=== PATIENT | male | born 1965 | race Caucasian/White ===

== ENCOUNTER 2016-10-19 09:33 | Inpatient (IN) | payer OTHER ==
[~2016-10-19] VITALS: Ht 180.3 cm; Wt 152.2 kg
--- NOTE | ~2016-10-19 | CT71 ---
[facility] Service of [facility] RADIOLOGY TEXT RESULTS PATIENT: YASMIN CABRAL SR. LOCATION: [facility] PC 306- : [birth year] UNIT #: [id number] AGE: [address]: Lisseth Bates MD SEX: M ORDER DR: [id number] [facility] [address] [facility]. [place], [place] [address] [id number] E MR#: [id number] Acc #: [id number] NAME: YASMIN CABRAL SR. : 1965 SEX: M STUDY DATE/TIME: 10/19/2016 11:01 UNIT: [facility] ROOM: STUDY DESCRIPTION: CT Head Wo Contrast Attending Physician: Dalton Dean M.D. Ordering Physician: Dalton Dean M.D. Primary Care Physician: Manjit Mitchell M.D. MEDICAL IMAGING REPORT This report is preliminary unless electronic signature is present EXAM CT head without contrast DATE 10/19/2016 HISTORY Dizziness, unsteady gait and nausea since this morning. Hypertension. COMPARISON Noncontrast CT head 09/22/2010. TECHNIQUE This CT exam was performed with one or more of the following radiation dose reduction techniques: automatic control, adjustment of mA and/or kV according to patient size, and iterative reconstruction. FINDINGS No acute intracranial hemorrhage, mass lesion, mass effect, or midline shift or evidence of acute or evolving infarct. Huitron matter - white matter junction distinction appears preserved. Ventricular configuration is within normal limits. Mastoid air cells are clear. Mild left ethmoid sinus mucosal thickening. Calvaria is within normal limits. IMPRESSION 1. No acute intracranial findings. 2. Mild left ethmoid sinus disease. Dictated by... Yuko Alicea M.D. THIS IS AN ELECTRONICALLY VERIFIED REPORT Yuko Alicea M.D. at 10/20/2016 11:57 AM [facility] A Service [facility] RADIOLOGY TEXT RESULTS PATIENT: YASMIN CABRAL SR. LOCATION: C3A 306- : 65 UNIT #: [id number] AGE: [address]: Lisseth Bates MD SEX: M ORDER DR: BENEDICTO/danilo TD: 10/19/2016 15:44 JOB #: [id number] MEDICAL IMAGING REPORT Page 1 of 1 COPY
--- NOTE | ~2016-10-19 | TH ---
Unit #: [id number] #: [id number] Patient: YASMIN CABRAL SR. [id number] [address] [address] [id number] I MR#: [id number] NAME: YASMIN CABRAL SR. : 1965 SEX: M STUDY DATE/TIME: 10/21/2016 UNIT: C3A PCU ROOM: 306 STUDY DESCRIPTION: Cardiolite imaging Attending Physician: Lisseth Bates M.D. Primary Care Physician: Manjit Mitchell M.D. CARDIOLOGY REPORT EXAM Cardiolite imaging. PROCEDURE Using technetium 99m labeled Cardiolite, stress images were obtained. Multiple SPECT images were obtained in various views, including horizontal and vertical long axis and short axis views. Images were obtained by gated SPECT imaging. The patient was administered 30.0 mCi of Cardiolite after Lexiscan infusion was completed. The stress images show normal perfusion. The left ventricular ejection fraction is calculated to be 66%. The left ventricular cavity is mildly dilated. CONCLUSION 1. Normal perfusion noted on the stress images. 2. The left ventricular ejection fraction is calculated to be 66%. 3. The left ventricular cavity is mildly dilated. 4. Normal Lexiscan stress test with mildly dilated left ventricle. Dictated by... La Isabel TD: 10/21/2016 11:11 JOB #: [id number] CARDIOLOGY REPORT Page 1 of 1 X Armida Gilbert MD <ELECTRONICALLY SIGNED> 12/16/16 1524 CARDIOLOGY REPORT
--- NOTE | ~2016-10-19 | CR72 ---
[facility] A Service of [facility] RADIOLOGY TEXT RESULTS PATIENT: YASMIN CABRAL SR. LOCATION: [facility] 306-01 : [birth year] UNIT #: [id number] AGE: [address]: Lisseth Bates MD SEX: M ORDER DR: [id number] [facility] [address] [facility]. [place], [place] [address] [id number] E MR#: [id number] Acc #: [id number] NAME: YASMIN CABRAL : 1965 SEX: M STUDY DATE/TIME: 10/19/2016 10:31 UNIT: [facility] ROOM: STUDY DESCRIPTION: CR Chest Single View Portable Attending Physician: Dalton Dean M.D. Ordering Physician: Dalton Dean M.D. Primary Care Physician: Manjit Mitchell M.D. MEDICAL IMAGING REPORT This report is preliminary unless electronic signature is present EXAM Chest portable 10/19/2016 1031 hours HISTORY 50-year-old man complaining of dizziness with nausea today. COMPARISON 01/01/2009 FINDINGS Portable upright chest demonstrates moderate enlargement of the cardiac silhouette increased from 2008 which could represent cardiomegaly and/or pericardial fluid. Aortic contours are normal. There is pulmonary venous distension without definite edema. No effusions seen. IMPRESSION 1. The cardiac silhouette is moderately enlarged representing a change from 01/01/2009. This could be due to a developing cardiomegaly and/or pericardial fluid. 2. There is pulmonary venous distension without definite edema, pneumonia or effusion. Dictated by... Jyotsna Marion M.D. THIS IS AN ELECTRONICALLY VERIFIED REPORT Jyotsna Marion M.D. at 10/20/2016 8:53 AM CHRIS/darinr TD: 10/19/2016 15:06 JOB #: [id number] MEDICAL IMAGING REPORT [facility] A Service of [facility] RADIOLOGY TEXT RESULTS PATIENT: YASMIN CABRAL SR. LOCATION: [facility] 306-01 : [birth year] UNIT #: [id number] AGE: [address]: Lisseth Bates MD SEX: M ORDER DR: Page 1 of 1 COPY
--- NOTE | ~2016-10-19 | HP ---
Unit #: [id number] #: [id number] Patient: YASMIN CABRAL SR. [id number] [address] [place], [place] [address] [id number] E MR#: [id number] NAME: YASMIN CABRAL ROOM: Age: 50 Sex: M Admission Date: 10/19/2016 : 1965 Attending Physician: Dalton Dean M.D. Primary Care Physician: Manjit Mitchell M.D. HISTORY AND PHYSICAL CHIEF COMPLAINT Vertigo, nausea, and vomiting. HISTORY OF PRESENTING ILLNESS A 50-year-old male who has a history of hypertension came because he woke up with dizziness and head spinning. He started having nausea and vomiting. He has vomited two or three times since morning. He tried to walk but could not ambulate. He tried to open his eyes but could not open his eyes. He came to the ER for further evaluation and is being admitted for the above. According to patient, he has received fluids and has received meclizine, so he is feeling a little bit better. He is able to open his eyes a little bit. He does not complain of chest pain, does not complain of shortness of breath, and does not complain of any fever, chills, or rigors. He does complain that his bilateral upper extremities are heavy although no complaint of numbness or decreased strength. He does feel kind of imbalanced when he walks. Patient has not really tried to walk since he has been to the ER. Patient has a history of vertigo about 15 years ago which improved. He does not complain of tinnitus, does not complain of ears, nose, or throat problems, and no complaint of sinusitis or allergic rhinitis. PAST MEDICAL HISTORY 1. Hypertension. 2. Prediabetic according to patient. 3. Morbid obesity. PAST SURGICAL HISTORY 1. Tonsillectomy. 2. Left knee arthroscopic surgery. HOME MEDICATIONS 1. Hydrochlorothiazide 25 mg daily. 2. Zestril 40 mg daily. 3. Aspirin 81 mg daily. 4. Vitamin D2 at 50,000 units weekly. FAMILY HISTORY Stroke in grandpa when he was 89 years old. SOCIAL HISTORY Patient lives at home with his . No history of smoking, alcohol, or drug abuse. ALLERGIES Unit #: [id number] #: [id number] Patient: YASMIN CABRAL SR. Codeine and pneumococcal vaccine. REVIEW OF SYSTEMS No history of fever, chills, or rigors. No history of chest pain. No history of shortness of breath. No history of palpitations. No history of syncopal episode. No history of abdominal pain, constipation, or diarrhea. The rest is as per History of Presenting Illness. PHYSICAL EXAMINATION GENERAL: Patient is being evaluated in the ER, room 14. VITAL SIGNS: Blood pressure is 131/65, respiratory rate 15, pulse 58, temperature 97.8, and oxygen saturation is 100%. HEENT: Head is normocephalic. Eye movements are normal, although he does not want to keep his eyes open for a long period of time so is kind of limited. NECK: Supple. CHEST: Fair air entry. No additional sounds. CARDIOVASCULAR: S1 and S2 positive. Regular rhythm. ABDOMEN: Obese and soft. No tenderness, no rigidity. EXTREMITIES: Pulses are palpable. Negative edema. CENTRAL NERVOUS SYSTEM: Awake, alert, and oriented x3. He does not seem to have any focal neurological deficit. Patient's neuro exam was limited because he is not able to stand up at this time because of vertigo. DIAGNOSTIC STUDIES LABORATORY: WBC 8.5, hemoglobin 13, hematocrit 37.2, and platelet count of 182,000. Sodium 137, potassium 3.3, chloride 103, BUN 16, and creatinine 0.9. Liver enzymes are stable. Troponin is less than 0.05. Glucose 141. Urinalysis is normal. IMAGING: Chest x-ray shows heart is moderately enlarged. CT scan of the head without contrast was done and showed no acute intracranial findings and mild left ethmoid sinus disease. ASSESSMENT Patient is being admitted to telemetry unit with: 1. Dizziness/vertigo. 2. Nausea and vomiting. 3. Hypokalemia. 4. Unlikely to be cerebrovascular accident. 5. Hyperglycemia. 6. Cardiomegaly. 7. Hypertension. PLAN Admit to telemetry unit. Dr. Fam has been consulted. IV fluids are being started, meclizine 25 mg q.6 p.r.n., and IV Zofran 4 mg q.6 p.r.n. Healthy heart diet. Home medications have been reviewed and adjusted. Echocardiogram will be done. TSH will be done. Hemoglobin A1c is being ordered. Fasting lipid profile will be done. Patient could not have MRI done because of his morbid obesity. The plan of care has been discussed with patient at length and even with his . Dictated by Lisseth Bates M.D. Unit #: [id number] #: [id number] Patient: YASMIN CABRAL Kaye Barber TD: 10/19/2016 17:10 JOB #: [id number] HISTORY AND PHYSICAL Page 1 of 1 X Lisseth Bates MD X HISTORY AND PHYSICAL
--- NOTE | ~2016-10-19 | DS ---
Unit #: [id number] #: [id number] Patient: YASMIN BYRD SR. [id number] [address] [address] [id number] I MR#: [id number] NAME: YASMIN BYRD, SR. ROOM: [facility] Age: 50 Sex: M Admission Date: 10/19/2016 : 1965 Discharge Date: 10/21/2016 Attending Physician: Lisseth Bates M.D. Primary Care Physician: Manjit Mitchell M.D. DISCHARGE SUMMARY FINAL DIAGNOSES 1. Vertigo, which is resolved. 2. Nausea and vomiting, resolved. 3. Hypokalemia, resolved. 4. Hypertension. 5. Hyperlipidemia. 6. Ejection fraction 40% to 45%, mild/moderate left ventricular hypertrophy. Grade 2 diastolic dysfunction. Mild tricuspid regurgitation. Right ventricular systolic pressure 35 millimeters of mercury on two-dimensional echocardiogram on October 20, 2016. 7. Status post Lexiscan Cardiolite test, which shows no ischemia, left ventricular ejection fraction of 60%, dilated left ventricle. DISCHARGE MEDICATIONS 1. Medrol Dosepak. 2. Meclizine 25 mg q.8 p.r.n. for dizziness 3. Hydrochlorothiazide 25 mg daily. 4. Lipitor 40 mg q.h.s. 5. Hydralazine 25 mg b.i.d. 6. Zestril 40 mg daily. 7. Aspirin 81 mg daily. 8. Vitamin D 50,000 units weekly. CONSULTATIONS DURING HOSPITALIZATION Dr. Gilbert from cardiology service. DIAGNOSTIC STUDIES CARDIOVASCULAR: Lexiscan Cardiolite stress, which was negative for ischemia. LAB WORKUP ON DISCHARGE: Troponin is less than 0.03. BMP shows sodium 137, potassium 4, chloride 102, BUN 13, creatinine 0.7, calcium 9. CBC shows WBC 11.2, hemoglobin 13.3, hematocrit 39.9 and platelet count of 206. Hemoglobin A1C 5.2. Lipid profile shows total cholesterol 212, triglycerides 223 and LDL 119. Please note the patient is being started on Lipitor. TSH 1.65. IMAGING: CT scan of the head was during hospitalization, which shows no acute intracranial findings. HOSPITAL COURSE Mr. Yasmin Byrd is a 50-year-old male who was admitted to the hospital with vertigo and dizziness, nausea and vomiting. The patient was admitted to telemetry unit. The patient was treated with IV fluids, Medrol Dosepak, Unit #: [id number] #: [id number] Patient: YASMIN BYRD SR. meclizine. He is doing much better at this time. His vertigo is resolved. Echocardiogram was done because of cardiomegaly, and it shows above findings, ejection fraction of 40% to 45%. Cardiology was consulted. The patient had Lexiscan stress test done, which shows no ischemia and left ventricular ejection fraction of 60%. The patient will follow with cardiology as outpatient. EXAMINATION ON DISCHARGE VITAL SIGNS: Blood pressure is 143/74, pulse 67, temperature 98. GENERAL: The patient is awake, alert, oriented x3. LUNGS: Clear to auscultation. HEART: S1, S2 positive. Regular rhythm. ABDOMEN: Obese. EXTREMITIES: Negative edema. DISCHARGE INSTRUCTIONS 1. The patient is being discharged home in stable condition. 2. Medications as per med/rec. 3. Follow up with primary care provider in 1 week. 4. Follow up with Dr. Gilbert in 3 months. Dictated by... Lisseth Bates M.D. FEROZ/avani TD: 10/22/2016 12:21 JOB #: [id number] DISCHARGE SUMMARY Page 1 of 1 X Lisseth Bates MD DISCHARGE SUMMARY
--- NOTE | ~2016-10-19 | ST ---
Unit #: [id number] #: [id number] Patient: YASMIN CABARL SR. [id number] [address] [place], [place] [address] [id number] I MR#: [id number] NAME: YASMIN CABRAL, . : 1965 SEX: M STUDY DATE/TIME: 10/21/2016 UNIT: [facility] PCU ROOM: [facility] STUDY DESCRIPTION: Stress test Attending Physician: Lisseth Bates M.D. Primary Care Physician: Manjit Mitchell M.D. CARDIOLOGY REPORT REASON FOR EXAM Decreased ejection fraction, chest pain. PROCEDURE Baseline EKG - Sinus bradycardia, rate of 58 beats per minute. Low voltage is noted. Per protocol, 0.4 mg of Lexiscan was injected, followed by Cardiolite. The patient experienced some chest tightness, shortness of breath during the testing. These symptoms resolved in the recovery period. There were no ST-T wave changes noted suggestive for ischemia. There was no ectopy. The test was stopped secondary to protocol completion. CONCLUSIONS 1. Negative EKG portion of Lexiscan Cardiolite. 2. No ST-T wave changes suggestive for ischemia. 3. Shortness of air and chest tightness reported during the infusion. These symptoms resolved in the recovery period. 4. No arrhythmias were noted. 5. Normal blood pressure response. 6. Please correlate with nuclear imaging. Dictated by... Olimpia Spencer A.P.R.N. for Armida Gilbert M.D. LMW/db TD: 10/21/2016 09:32 JOB #: [id number] Unit #: [id number] #: [id number] Patient: YASMIN CABRAL SR. CARDIOLOGY REPORT Page 1 of 1 X Olimpai Spencer APRN CARDIOLOGY REPORT
--- NOTE | ~2016-10-19 | EKG ---
PATIENT: YASMIN CABRAL UNIT #: [id number] Ventricular Rate: 59 BPM Atrial Rate: 59 BPM P-R Interval: 216 ms QRS Duration: 88 ms Q-T Interval: 408 ms QTC Calculation(Bezet): 403 ms P [place]: 19 degrees Calculated R [place]: 22 degrees Calculated T [place]: 38 degrees Diagnosis Line: Sinus bradycardia with 1st degree A-V block Diagnosis Line: Otherwise normal ECG Diagnosis Line: Diagnosis Line: Confirmed by SUKHDEV LUCIANO MD ([id number]) on Diagnosis Line: 10/21/2016 3:54:00 PM INTERPRETING MD: JAIR
--- NOTE | ~2016-10-19 | BMI ---
[facility] Nutrition Therapy DATE: 10/20/16 Patient: YASMIN Restrepo SR. CABRAL Physician: BLANCA Address: [address] [place] [address] Room/Bed: [address] [place] [address], Zip: [place] [address] Admit Date: 10/19/16 Date of : [birth year] Height: 5 11 Weight: 334 151.6 HIGH BMI NOTE: ANTHROPOMETRICS: HT: 5'11" ADM WT: 151.6 KG BMI: 46.6 DIET: HEART HEALTHY/ 1800 [address] RECOMMENDATIONS: 1. CONTINUE CURRENT DIET TO PROMOTE GRADUAL WEIGHT LOSS TOWARDS A HEALTHY BMI RANGE. Respectfully, AWA PRATT RD, LD [facility] cc: client file
--- NOTE | ~2016-10-19 | CO ---
Unit #: [id number] #: [id number] Patient: YASMIN CABRAL SR. [id number] [address] [place], [place] [address] [id number] I MR#: [id number] NAME: YASMIN CABRAL SR. ROOM: [facility] Age: 50 Sex: M Admission Date: 10/19/2016 : 1965 Attending Physician: Lisseth Bates M.D. Primary Care Physician: Manjit Mitchell M.D. Consultation Date: 10/20/2016 CONSULTATION REPORT REASON FOR CONSULT Vertigo and abnormal echocardiogram. HISTORY OF PRESENT ILLNESS This is a 50-year-old white male, new to our group, with a past medical history of hypertension and obesity. The patient was told that he had a slightly "weak heart" when he was in the service in 1979. He had a "chemical stress test" four years ago with no details available. He denies previous cardiac catheterization. There were no reports of hyperlipidemia, diabetes mellitus, myocardial infarction or cerebrovascular accident. Risk factors for ischemic heart disease included hypertension and reformed tobacco abuse. He denies family history of heart disease. There are no reports of alcohol or illicit drug use. He presented to the hospital with complaints of dizziness accompanied by nausea and vomiting. He vomited two or three times prior to coming to the hospital. The dizziness was worse when he moved his head or tried to walk. He denies fall or loss of consciousness. There are no reports of chest pain, shortness of breath, PND or orthopnea. He denies lower extremity edema or palpitations. In the emergency department, initial CBC was normal. Chemistry revealed a low potassium of 3.3. Glucose was 145. LFTs and creatinine were normal. Cardiac enzymes were negative. CT of the head was completed without contrast and revealed no acute intracranial findings. There was mild left ethmoid sinus disease. He was admitted for vertigo, nausea, vomiting and hypokalemia. A 2D echocardiogram was obtained and revealed an ejection fraction of 40% to 45% with mild to moderate LVH and grade 2 diastolic dysfunction. Cardiology was consulted due to abnormal echocardiogram. The patient's TSH was normal. Lipids were obtained and he was started on a statin. He was encouraged to lose weight. A Lexiscan Cardiolite stress test was scheduled to assess for ischemia due to low ejection fraction. PAST MEDICAL HISTORY 1. Hypertension. 2. 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 3. Stress test reportedly four years ago, details unavailable. 4. Obesity. 5. Reformed tobacco abuse. PAST SURGICAL HISTORY 1. Tonsillectomy. 2. Left knee arthroscopic surgery. Unit #: [id number] #: [id number] Patient: YASMIN CABRAL . HOME MEDICATIONS 1. Hydrochlorothiazide 25 mg p.o. daily. 2. Lisinopril 40 mg p.o. daily. 3. Aspirin 81 mg p.o. daily. 4. Vitamin D 50,000 units p.o. weekly on Tuesday. ALLERGIES Codeine and pneumococcal vaccine. 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 He is a reformed smoker and quit in 2008. There are no reports of alcohol or illicit drug use. FAMILY HISTORY Noncontributory for heart disease. REVIEW OF SYSTEMS A 12-point review of systems negative except for details noted above in HPI. PHYSICAL EXAMINATION VITAL SIGNS: Temperature 98, pulse 67, blood pressure 143/74. CONSTITUTIONAL: This is a 50-year-old white male in no acute distress. SKIN: Warm and dry. NECK: Supple. No jugular vein distention. No hepatojugular reflux. Normal carotid upstrokes. No carotid bruits auscultated. HEART: S1 and S2. Regular rate and rhythm. No murmurs, rubs or gallops. LUNGS: Bilateral breath sounds have good air entry throughout all lung salvador. Respirations even and unlabored. No rales, rhonchi, or wheezes. ABDOMEN: Soft, nontender, and nondistended. Positive bowel sounds auscultated x4 quadrants. No ascites noted. EXTREMITIES: Bilateral extremities have no pretibial pitting edema. DP and PT pulses 2+. Capillary refill less than three seconds. DIAGNOSTIC STUDIES LABORATORY: White blood cell count 8.5, hemoglobin 13, hematocrit 37.2, platelets 182. Sodium 137, potassium 3.3, chloride 103, CO2 27, BUN 16, creatinine 0.9, glucose 145, AST 22, ALT 22, alkaline phos. 67. Troponin 0.03 and 0.05. Hemoglobin A1c of 5.2. Total cholesterol 212, triglycerides 223, LDL 119, HDL 48, TSH 1.65. Urinalysis negative. IMAGING: CT of the head reveals no acute findings. Mild left ethmoid sinus disease. Chest x-ray reveals cardiac silhouette moderately enlarged representing a change from 01/01/2009. Could be due to developing cardiomegaly or pericardial fluid. Pulmonary venous distention without definite edema, pneumonia or effusion. CARDIOVASCULAR: Electrocardiogram reveals sinus bradycardia with a first Unit #: [id number] #: [id number] Patient: YASMIN CABRAL SR. degree AV block. Ventricular rate 59 beats/minute. Nonspecific ST-T wave changes. QTC 403 msec. IMPRESSION 1. Vertigo. 2. Nausea and vomiting. 3. Hypokalemia, resolved. 4. Hypertension. 5. Hyperlipidemia. 6. Abnormal 2D echocardiogram on 10/20/2016 which revealed an ejection fraction of 40% to 45% with mild to moderate LVH. Grade 2 diastolic dysfunction. Mild tricuspid regurgitation. RVSP 35 mmHg. 7. Obesity. 8. Reformed tobacco abuse. PLAN 1. The patient presented to the hospital with complaints of dizziness, nausea and vomiting. He was admitted for vertigo and started on meclizine which resolved his symptoms. 2. Cardiology was consulted due to abnormal echocardiogram. 3. The patient has no symptoms of angina or heart failure. 4. He will be ruled out for ischemic cause of cardiomyopathy with a stress test in a.m. 5. TSH level is normal. 6. A statin will be started due to hyperlipidemia. 7. The patient is on an SILAS inhibitor for afterload reduction. He may not be able to tolerate a beta debo due to borderline low heart rate. 8. He has been encouraged to lose weight. Dictated by... Constance Khoury APRN for [place] TD: 10/22/2016 08:47 JOB #: [id number] CONSULTATION REPORT Page 1 of 1 X X CONSULTATION REPORT
--- NOTE | ~2016-10-19 | EKG ---
PATIENT: YASMIN CABRAL UNIT #: [id number] Ventricular Rate: 64 BPM Atrial Rate: 64 BPM P-R Interval: 214 ms QRS Duration: 92 ms Q-T Interval: 410 ms QTC Calculation(Bezet): 422 ms P [place]: 48 degrees Calculated R [place]: 62 degrees Calculated T [place]: 37 degrees Diagnosis Line: Sinus rhythm with 1st degree A-V block Diagnosis Line: Nonspecific T wave abnormality Diagnosis Line: Abnormal ECG Diagnosis Line: When compared with ECG of 22-SEP-2010 11:59, Diagnosis Line: No significant change was found Diagnosis Line: Confirmed by JEFFREY CHAUHAN MD ([id number]) on Diagnosis Line: 10/19/2016 5:10:26 PM INTERPRETING MD: TIEN CASTRO
[~2016-10-19 09:33] MED LIST: ASPIRIN PO; ASPIRIN81 M1 PO; ASPIRIN81 M2 PO; BENTYL20 MG PO; CERTAGEN PO; HYDROCHLOROTHIA25 MG PO; KEFLEX PO; KETOPROFEN PO; LISINOPRIL20 MG PO; MEDROL DOSEPAK4 MG; MEDROL4 MG/DOSE- PO; MULTI VITAMIN1 EACH PO; MULTIVITAMIN1 UDCAP PO; PHENERGAN PO; PHENERGAN25 M1 PO; SKELAXIN PO; ULTRAM PO; VICODIN 5/500 T1 TAB PO; VITAMIN C PO; VITAMIN D 4001 UDTAB PO; ZESTRIL10 MG PO
[2016-10-19 10:43] LABS: BASOPHIL% 0.3 % (0-2.5); DIFF IND NO; EOSINOPHIL# 0.1 X10e3 (0-0.7); EOSINOPHIL% 0.8 % (0.0-7.0); HEMATOCRIT 37.2 % (38.0-50.0); LYMPHOCYTE# 1.5 X10e3 (1.0-3.5); MEAN CELL VOLUME 82.8 FL (83-96); MEAN CORPUSCULAR HEMOGLOBIN 28.9 PG (28-34); MEAN CORPUSCULAR HGB CONC 34.9 g/dL (30-36); MEAN PLATELET VOLUME 7.8 FL (6.5-11.5); MONOCYTE# 0.5 X10e3 (0-1.0); MONOCYTE% 6.3 % (3.0-12.0); NEUTROPHIL# 6.4 X10e3 (1.5-7.1); NEUTROPHIL% 74.6 % (40-75); PLATELET COUNT 182 X10e3 (140-420); RED BLOOD COUNT 4.49 X10e (3.90-5.60); RED CELL DISTRIBUTION WIDTH 14.2 % (11.0-15.5); WHITE BLOOD COUNT 8.5 X10e3 (4.0-10.5)
[2016-10-19 11:09] LABS: BILIRUBIN, DIRECT 0.1 mg/dL (0.0-0.2); BILIRUBIN,INDIRECT 0.5 mg/dL (0.0-0.9); BILIRUBIN,TOTAL 0.6 mg/dL (0.2-2.0); BUN/CREATININE RATIO 17.77; CALCIUM SERUM 8.9 mg/dL (8.4-10.2); CREATININE SERUM 0.9 mg/dL (0.6-1.4); GLOM FILT RATE Estimated 99.2 mL/min (>60); POTASSIUM 3.3 mmol/L (3.5-5.1)
[2016-10-19 11:17] LABS: POC - CKMB 3.3 ng/mL (0.0-7.9); POC - TROPONIN <0.05 ng/mL (<=0.05)
[2016-10-19 12:20] LABS: URINE SOURCE CLEAN CATCH
[2016-10-19 12:28] LABS: URINE APPEARANCE CLEAR; URINE BILIRUBIN NEG (NEG); URINE BLOOD NEG (NEG); URINE COLOR YELLOW; URINE GLUCOSE NEG (NEG); URINE KETONE NEG (NEG); URINE LEUKOCYTE ESTERASE NEG (NEG); URINE NITRATE NEG (NEG); URINE PH 6.5 (5-8); URINE PROTEIN NEG (NEG); URINE SPECIFIC GRAVITY 1.024 (1.003-1.035)
[2016-10-19 12:36] LABS: CULTURE INDICATED? NO
[2016-10-19 12:43] LABS: POC - CKMB 4.1 ng/mL (0.0-7.9); POC - TROPONIN <0.05 ng/mL (<=0.05)
[2016-10-19] MEDS ORDERED: ASPIRIN81 M2 PO (13:17)
[2016-10-19] MEDS ORDERED: HYDROCHLOROTHIA25 MG PO (13:17)
[2016-10-19] MEDS ORDERED: ZESTRIL40 MG PO (13:17)
[2016-10-19] MEDS ORDERED: VITAMIN D250000 UNIT PO (13:18)
[2016-10-20 07:08] LABS: CHOLESTEROL 212 mg/dL (0-200); HDL CHOLESTEROL 48 mg/dL (29-75); LDL CHOLESTEROL 119 mg/dL (-130); LDL/HDL RATIO 2 RATIO (0-4); TRIGLYCERIDES 223 mg/dL (10-160)
[2016-10-21 05:13] LABS: HEMATOCRIT 39.9 % (38.0-50.0); HEMOGLOBIN 13.3 gm/dL (13.0-16.0); MEAN CORPUSCULAR HEMOGLOBIN 27.7 PG (28-34); MEAN CORPUSCULAR HGB CONC 33.4 g/dL (30-36); MEAN PLATELET VOLUME 8.4 FL (6.5-11.5); RED BLOOD COUNT 4.8 X10e (3.90-5.60); WHITE BLOOD COUNT 11.2 X10e3 (4.0-10.5)
[2016-10-21 05:32] LABS: BUN/CREATININE RATIO 18.57; CREATININE SERUM 0.7 mg/dL (0.6-1.4); GLOM FILT RATE Estimated 110.1 mL/min (>60)
[2016-10-21] MEDS ORDERED: MEDROL DOSEPAK4 MG (13:15)
[2016-10-21] MEDS ORDERED: ANTIVERT PO (13:15)
[2016-10-21] MEDS ORDERED: LIPITOR40 MG PO (13:16)
[2016-10-21] MEDS ORDERED: HYDRALAZINE HCL25 MG PO (13:16)
== END 2016-10-21 16:21 | disposition home or self-care (01) | DRG 149 ==
LOC: CED 09:33 → CEDOF 15:00 → CED 18:32 → CEDOF 18:37 → C3A PCU 18:37
PROVIDERS: Emergency Medicine; Physician Assistant Medical
PROC: B24BZZZ Ultrasonography of Heart with Aorta (ICD-10-PCS; principal; 2016-10-20)
DX: R42 Dizziness and giddiness (principal); Z68.42 Body mass index [BMI] 45.0-49.9, adult; I10 Essential (primary) hypertension; E87.6 Hypokalemia; E78.5 Hyperlipidemia, unspecified; R73.9 Hyperglycemia, unspecified; I51.7 Cardiomegaly; E66.9 Obesity, unspecified; Z79.82 Long term (current) use of aspirin; Z87.891 Personal history of nicotine dependence; Z88.5 Allergy status to narcotic agent; Z88.7 Allergy status to serum and vaccine; Z82.3 Family history of stroke
CPT/HCPCS: 36415; 70450; 71010; 78451; 80048; 80061; 80076; 81003; 82553; 82947; 83036; 84443; 84484; 85025; 85027; 93005; 93017; 93306; 96361; 96374; 99285; A9500; J2405; J2785